=== PATIENT | female | born 1985 ===

== ENCOUNTER 2021-04-25 08:30 | Inpatient (IN) | payer OTHER ==
[~2021-04-25] VITALS: Ht 165.1 cm; Wt 115.2 kg
[2021-04-30] MEDS ORDERED: GABAPENTIN100 M2 (10:54)
== END 2021-05-01 16:55 | disposition home or self-care (01) | DRG 743 ==
LOC: OB/GYN 04-30 07:11 → O/R 04-30 07:11 → OB/GYN 04-30 11:45
PROVIDERS: ADMIT Specialist; ATTEND Specialist
PROC: 0UDB7ZZ Extraction of Endometrium, Via Natural or Artificial Opening (ICD-10-PCS; 2021-04-30)
PROC: 0UB04ZZ Excision of Right Ovary, Percutaneous Endoscopic Approach (ICD-10-PCS; principal; 2021-04-30 11:45)
DX: D27.0 Benign neoplasm of right ovary (principal); R19.00 Intra-abdominal and pelvic swelling, mass and lump, unspecified site